=== PATIENT | male | born 1955 | race Caucasian/White ===

== ENCOUNTER 2021-11-19 12:25 | Inpatient (IN) | payer BC ==
[2021-11-19 14:57] LABS: Troponin I 0.375 ng/mL (< 0.028)
[2021-11-19] MEDS ORDERED: Nitroglycerin 0.4 MG TAB (25 Tab Bottle) SL PRN (15:39)
[2021-11-19] MEDS ORDERED: Ondansetron PF 4 MG/2 ML Vial IVP PRN (15:39)
[2021-11-19] MEDS ORDERED: Ondansetron ODT 4 MG TAB PO PRN (15:39)
[2021-11-19] MEDS ORDERED: Acetaminophen 650 MG Suppository PR PRN (15:39)
[2021-11-19] MEDS ORDERED: Acetaminophen 325 MG TAB PO PRN (15:39)
[2021-11-19] MEDS ORDERED: Senokot S 8.6-50 MG TAB PO PRN (15:39)
[2021-11-19 18:37] LABS: Critical Call Chem Troponin I RESULT DECREASING; Troponin I 0.319 ng/mL (< 0.028)
[2021-11-19 21:41] LABS: Troponin I 0.284 ng/mL (< 0.028)
[2021-11-19 22:51] VITALS: BMI 24.2
[2021-11-19] MEDS ORDERED: Amlodipine 10 MG TAB PO SCH (23:00)
[2021-11-19] MEDS ORDERED: Enoxaparin Sodium 80 MG/0.8 ML SYRINGE SC SCH (23:15)
[2021-11-19] MEDS: Nitroglycerin 2% Ointment 1 INCH/1 GM Packet TOP SCH (23:24)
[2021-11-19] MEDS: Atorvastatin Calcium 40 MG TAB PO SCH (23:24)
[2021-11-19] MEDS: Metoprolol Tartrate 25 MG TAB PO SCH (23:24)
[2021-11-20 04:37] LABS: #Eosinphils 0.4 thou/uL (0.0-0.7); #Lymphocytes 1.1 thou/uL (1.20-3.40); #Monocytes 0.8 thou/uL (0.11-0.59); #Neutrophils 6.2 thou/uL (1.40-6.50); %Basophils 0.4 % (0.0-1.0); %Eosinophils 4.3 % (0.0-10.0); %Monocytes 9.6 % (0.0-10.0); %Neutrophils 72.7 % (42.0-75.0); Mean Corpuscular HGB CONC 32.8 g/dL (32.0-36.0); Mean Corpuscular Hemoglobin 31.7 pg (27.0-31.0); Mean Corpuscular Volume 96.5 fL (78.0-98.0); Mean Platelet Volume 7.4 fL (7.4-10.4); Platelet Count 196 thou/uL (130-400); RBC Distribution Width 12.9 % (11.5-14.5); Red Blood Cell (RBC) Count 4.73 mill/uL (4.70-6.10); White Blood Cell (WBC) Count 8.6 thou/uL (4.8-10.8)
[2021-11-20 04:56] LABS: Anion Gap 10 mmol/L (10-20); BUN (Urea Nitrogen) 8 mg/dL (8.4-25.7); Calc. Creatinine Clearance 87 mL/min (70-130); Calcium 8.6 mg/dL (7.8-10.44); Carbon Dioxide 28 mmol/L (23-31); Cardiac Risk 2.3 (Less than 4.5); Chloride 104 mmol/L (98-107); Cholesterol 124 mg/dl (< 200 Desired); Estimated GFR 92; Glucose 85 mg/dL (80-115); HDL Cholesterol 55 mg/dL (>60 Neg Risk); LDL Cholesterol, Calculated 48 mg/dL; Potassium 3.6 mmol/L (3.5-5.1); Sodium 138 mmol/L (136-145); Triglycerides 106 mg/dL (Less than 150)
[2021-11-20] MEDS: Levothyroxine Sodium 75 MCG TAB PO SCH (06:05)
[2021-11-20] MEDS: Nitroglycerin 2% Ointment 1 INCH/1 GM Packet TOP SCH ×2 (06:05→15:25)
[2021-11-20] MEDS ORDERED: NS 0.9% w/ 20 MEQ KCL 1,000 ML/1,000 ML BAG IV SCH (07:00)
[2021-11-20 08:06] LABS: Free T4 (Free Thyroxine) 0.58 ng/dL (0.70-1.48)
[2021-11-20] MEDS: Metoprolol Tartrate 25 MG TAB PO SCH ×2 (08:35→20:25)
[2021-11-20] MEDS: Amlodipine 10 MG TAB PO SCH (08:36)
[2021-11-20] MEDS ORDERED: Iopamidol 370 76% 100 ML VIAL ONE (08:39)
[2021-11-20] MEDS ORDERED: Enoxaparin Sodium 80 MG/0.8 ML SYRINGE SC SCH (09:00)
[2021-11-20] MEDS ORDERED: Verapamil 5 MG/2 ML VIAL ONE (09:56)
[2021-11-20] MEDS ORDERED: Nitroglycerin 100MG/250ML BOT 250 ML ONE (09:56)
[2021-11-20] MEDS ORDERED: Heparin 10,000 UNITS/ 10 ML VIAL ONE (09:56)
[2021-11-20] MEDS ORDERED: Fentanyl 100 MCG/2 ML VIAL ONE (10:53)
[2021-11-20] MEDS ORDERED: Midazolam HCl 2 mg/2 ml Vial ONE (10:53)
[2021-11-20] MEDS ORDERED: Adenosine 6 MG/2 ML VIAL ONE (11:38)
[2021-11-20] MEDS: Atorvastatin Calcium 40 MG TAB PO SCH (20:25)
[2021-11-21 04:38] LABS: #Eosinphils 0.4 thou/uL (0.0-0.7); #Monocytes 0.8 thou/uL (0.11-0.59); #Neutrophils 5.3 thou/uL (1.40-6.50); %Basophils 0.6 % (0.0-1.0); %Eosinophils 4.7 % (0.0-10.0); %Lymphocytes 13.7 % (21.0-51.0); %Monocytes 10.6 % (0.0-10.0); %Neutrophils 70.4 % (42.0-75.0); Hemoglobin 14.5 g/dL (14.0-18.0); Mean Corpuscular HGB CONC 32.1 g/dL (32.0-36.0); Mean Corpuscular Hemoglobin 31.3 pg (27.0-31.0); Mean Corpuscular Volume 97.3 fL (78.0-98.0); Mean Platelet Volume 7.5 fL (7.4-10.4); Platelet Count 189 thou/uL (130-400); RBC Distribution Width 12.9 % (11.5-14.5); Red Blood Cell (RBC) Count 4.63 mill/uL (4.70-6.10); White Blood Cell (WBC) Count 7.5 thou/uL (4.8-10.8)
[2021-11-21 05:05] LABS: Anion Gap 11 mmol/L (10-20); BUN (Urea Nitrogen) 9 mg/dL (8.4-25.7); Calc. Creatinine Clearance 85 mL/min (70-130); Calcium 8.7 mg/dL (7.8-10.44); Carbon Dioxide 28 mmol/L (23-31); Chloride 104 mmol/L (98-107); Estimated GFR 89; Glucose 90 mg/dL (80-115); Potassium 3.5 mmol/L (3.5-5.1); Sodium 139 mmol/L (136-145)
[2021-11-21] MEDS: Levothyroxine Sodium 75 MCG TAB PO SCH (05:41)
[2021-11-21 08:29] VITALS: BP 133/83; TEMP 97.6
[2021-11-21] MEDS ORDERED: Aspirin 81 mg Enteric Coated Tablet PO SCH (09:00)
[2021-11-21] MEDS: Amlodipine 10 MG TAB PO SCH (09:13)
[2021-11-21] MEDS: Metoprolol Tartrate 25 MG TAB PO SCH (09:13)
== END 2021-11-21 11:35 | disposition home or self-care (01) | DRG 281 ==
LOC: ERS 12:25 → ERHOLD 14:57 → 2NO 22:17
PROVIDERS: ADMIT Internal Medicine; ATTEND Internal Medicine
PROC: 4A023N7 Measurement of Cardiac Sampling and Pressure, Left Heart, Percutaneous Approach (ICD-10-PCS; principal; 2021-11-20)
PROC: B2151ZZ Fluoroscopy of Left Heart using Low Osmolar Contrast (ICD-10-PCS; 2021-11-20)
PROC: B2111ZZ Fluoroscopy of Multiple Coronary Arteries using Low Osmolar Contrast (ICD-10-PCS; 2021-11-20)
DX: I16.0 Hypertensive urgency (principal); I21.A1 Myocardial infarction type 2; I25.110 Atherosclerotic heart disease of native coronary artery with unstable angina pectoris; E78.5 Hyperlipidemia, unspecified; I10 Essential (primary) hypertension; E03.9 Hypothyroidism, unspecified; F17.210 Nicotine dependence, cigarettes, uncomplicated; F10.10 Alcohol abuse, uncomplicated; D17.5 Benign lipomatous neoplasm of intra-abdominal organs; Z85.21 Personal history of malignant neoplasm of larynx; Z92.3 Personal history of irradiation; Z92.21 Personal history of antineoplastic chemotherapy; Z91.14 Patient's other noncompliance with medication regimen; Z79.899 Other long term (current) drug therapy; Z79.890 Hormone replacement therapy
CPT/HCPCS: 36415; 80048; 80061; 84439; 84443; 84481; 85025; 93005; 93306; 93458; 97139; 99152; 99153; C1769; C1894; J0153; J1644; J1650; J2250; J3010; Q9967